=== PATIENT | female | born 1985 | race Caucasian/White ===

== ENCOUNTER 2017-01-13 22:31 | Emergency (ER) | payer OTHER ==
[~2017-01-13] VITALS: Ht 162.6 cm; Wt 100.0 kg
[~2017-01-13 22:31] MED LIST: GABA300C PO; Hydrocodone Bit/Acetaminophen PO; IBUP800T25 PO
[2017-01-13 23:15] VITALS: Ht 162.6 cm; Wt 100.0 kg
[2017-01-14] MEDS ORDERED: LIDOCAINE/MYLANTA 40 ML BTL PO ONE (01:30)
--- NOTE | 2017-01-14 02:21 | RADRPT ---
PROCEDURE: CHEST - 1 VIEW CLINICAL INDICATION: 32-year-old female with shortness of breath. TECHNIQUE: A single frontal PA view of the chest was performed. The images were reviewed on a PAC S workstation. COMPARISON: Chest x-ray May 24, 2015. FINDINGS: The cardiomediastinal silhouette has a normal appearance. There is no evidence for an infiltrate. There is no evidence for congestive heart failure. There is no evidence for pneumothorax. The osseou s structures are intact. IMPRESSION: No evidence for active cardiopulmonary disease. .Oscar Christianson MD, MD Date Time Electronically viewed and signed by .Oscar Christianson MD, on 01/14/2017 02:20 .M/
[2017-01-14 02:26] LABS: ADD SCAN DIFF NO
[2017-01-14 02:29] LABS: BASOPHIL # 0.1 10^3/ul (0.0-0.1); BASOPHILS % 0.5 % (0.0-2.0); EOSINOPHILS # 0.2 10^3/ul (0.0-0.5); EOSINOPHILS % 1.5 % (0.0-7.0); HEMATOCRIT 39.8 % (37.0-47.0); HEMOGLOBIN 13.5 g/dl (12.0-16.0); LYMPHOCYTES # 3.5 10^3/ul (0.8-2.9); LYMPHOCYTES % 25.5 % (15.0-51.0); MEAN CORPUSCULAR HEMOGLOBIN 30.8 pg (29.0-33.0); MEAN CORPUSCULAR HGB CONC 33.9 g/dl (32.0-37.0); MEAN CORPUSCULAR VOLUME 90.9 fl (82.0-101.0); MEAN PLATELET VOLUME 9.6 fl (7.4-10.4); MONOCYTE # 0.9 10^3/ul (0.3-0.9); MONOCYTES % 6.2 % (0.0-11.0); NEUTROPHILS % 65.6 % (39.0-77.0); PLATELET COUNT 422 10^3/UL (140-415); RED BLOOD COUNT 4.38 10^6/ul (4.20-5.40); RED CELL DISTRIBUTION WIDTH 12.3 % (11.5-14.5); WHITE BLOOD COUNT 13.8 10^3/ul (4.8-10.8)
[2017-01-14] MEDS ORDERED: traMADol 50 MG TAB PO ONE (02:30)
[2017-01-14 02:45] LABS: ALBUMIN 4.1 g/dl (3.3-4.9); CHLORIDE 104 mmol/L (97-110); POTASSIUM 3.8 mmol/L (3.5-5.1); SODIUM 144 mmol/L (135-144)
[2017-01-14 02:47] LABS: ANION GAP 20 (8-16); BILIRUBIN,INDIRECT 0.2 mg/dl (0-1.1); BILIRUBIN,TOTAL 0.2 mg/dl (0.2-1.3); CARBON DIOXIDE 24 mmol/L (21-31); CREATININE 0.65 mg/dl (0.44-1.00)
[2017-01-14 02:48] LABS: ALANINE AMINOTRANSFERASE 28 IU/L (13-69); ALBUMIN/GLOBULIN RATIO 1.07; ALKALINE PHOSPHATASE 85 IU/L (42-121); ASPARTATE AMINO TRANSFERASE 25 IU/L (15-46); BLOOD UREA NITROGEN 10 mg/dl (7-20); CALCIUM 9.4 mg/dl (8.4-10.2); GLUCOSE 128 mg/dl (70-220); TOTAL PROTEIN 7.9 g/dl (6.1-8.1)
[2017-01-14] MEDS ORDERED: ONDANSETRON (ODT) 4 MG TAB ODT STA (03:02)
[2017-01-14] MEDS ORDERED: KETOROLAC 30 MG INJ IM STA (03:02)
[2017-01-14 03:11] LABS: TROPONIN-I < 0.012 ng/ml (0.00-0.12)
[2017-01-14] MEDS ORDERED: FAMOTIDINE 20 MG TAB PO ONE (03:30)
[2017-01-14] MEDS ORDERED: GABA300C16 PO (03:49)
[2017-01-14] MEDS ORDERED: OMEP20CA16 PO (03:49)
[2017-01-14] MEDS ORDERED: IBUP-1542 PO (03:49)
[2017-01-14 04:18] VITALS: BP 126/70; PULSE 78; RESP 16
--- NOTE | 2017-01-14 04:53 | ERD ---
ER Documentation Chief Complaint Date/Time DATE: 01/14/17 TIME: 04:50 Chief Complaint SOB/CP X2 DAYS +LT SIDE FACIAL NUMBNESS HX MIGRAINE HPI Patient is a 32 year old female with a chief complaint of left facial pain and swelling, associated with nausea, dizziness, orthopnea and runny nose x4 days. Pt also ate some garlic today as a means to relieve the symptoms that led to epigastric pain. Pt was admitted at [facility] from May 23- with right facial pain and numbness - MRI brain and EEG were negative and pt exhibited medication-seeking behavior and anxiety with possible migraine headaches. Pt denies any facial numbness, weakness, drooling, facial droop, slurred speech, vision problems, chest pain or shortness of breath. Pt also denies any dysuria, urine or bowel incontinence. Pt also admitted of taking ibuprofen and her son's keflex medication as an attempt to relieve the pain. Pt has a medical history of asthma and hypercholesterolemia. ROS All systems reviewed and are negative except as per history of present illness. Medications Home Meds Active Scripts Omeprazole* (Omeprazole*) 20 Mg Capsule.dr, 20 MG PO DAILY, #30 CAP Prov:JOHN LONGO 01/14/17 Gabapentin* (Gabapentin*) 300 Mg Capsule, 300 MG PO BID, #60 CAP Prov:JOHN LONGO 01/14/17 Ibuprofen* (Motrin*) 600 Mg Tab, 600 MG PO Q6H Y for PAIN AND OR ELEVATED TEMP, #30 TAB Prov:JOHN LONGO 01/14/17 Gabapentin* (Neurontin*) 300 Mg Cap, 300 MG PO TID, #90 Prov:BRYN RG Y 05/30/15 [Hydrocodone Bit/Acetaminophen] 1 TAB TAB No Conflict Check, 1 TAB PO Q6H Y for pain, #30 TAB Prov:BRYN RG Y 05/30/15 Reported Medications Ibuprofen* (Ibuprofen*) 800 Mg Tablet, 800 MG PO Q6H Y for PAIN, TAB 05/24/15 Allergies Allergies: Coded Allergies: morphine (Unverified Allergy, Severe, itching, shortness of breath, ) PMhx/Soc History of Surgery: Yes (CHOLECYSTECTOMY, APPENDECTOMY, lumpectomy 2009) Anesthesia Reaction: No Hx Neurological Disorder: Yes (CVA) Hx Respiratory Disorders: Yes (ASTHMA) Hx Cardiac Disorders: Yes (HIGH CHOLESTEROL) Hx Psychiatric Problems: No Hx Miscellaneous Medical Probl: Yes (pancreatitis) Hx Alcohol Use: No Hx Substance Use: No Hx Tobacco Use: No Smoking Status: Never smoker Physical Exam Vitals Vital Signs Date Time Temp Pulse Resp B/P Pulse Ox O2 Delivery O2 Flow Rate FiO2 01/14/17 04:18 78 16 126/70 98 Room Air 01/13/17 23:15 99.1 112 20 158/101 99 Physical Exam Physical Exam CONST: Well-developed, well-nourished, in no acute distress. Nontoxic in appearance. HEENT: Tender left maxillary area upon palpation. No facial swelling. Normal conjunctiva. EOM intact. TM intact. External ear is normal. Clear oropharnyx without erythema. No Uvular deviation. Moist mucous membranes. Supple neck. No meningismus. No submandibular induration. RESP: Clear to auscultation bilaterally. No wheezing. CARDIO: Regular rate and rhythm, no murmurs. ABD: Soft, non tender, non distended. Normal bowel sounds. No McBurney's point tenderness. No guarding or rigidity. No peritoneal signs. SKIN: No petechiae or rashes. BACK: No midline or flank tenderness. EXT: No cyanosis or edema. Distal pulses equal and bilateral. Motor strength +5. NEURO: Awake and alert, appropriate for age. Result Diagram: 01/14/1721601/14/17216 Results 24 hrs Laboratory Tests Test 01/14/17 02:17 Alanine Aminotransferase (ALT/SGPT) 28IU/L Albumin 4.1g/dl Albumin/Globulin Ratio 1.07 Alkaline Phosphatase 85IU/L Anion Gap 20 Aspartate Amino Transf (AST/SGOT) 25IU/L Basophils # 0.110^3/ul Basophils % 0.5% Blood Urea Nitrogen 10mg/dl Calcium Level 9.4mg/dl Carbon Dioxide Level 24mmol/L Chloride Level 104mmol/L Creatinine 0.65mg/dl Direct Bilirubin 0.00mg/dl Eosinophils # 0.210^3/ul Eosinophils % 1.5% Globulin 3.80g/dl Glucose Level 128mg/dl Hematocrit 39.8% Hemoglobin 13.5g/dl Indirect Bilirubin 0.2mg/dl Lipase 67U/L Lymphocytes # 3.510^3/ul Lymphocytes % 25.5% Mean Corpuscular Hemoglobin 30.8pg Mean Corpuscular Hemoglobin Concent 33.9g/dl Mean Corpuscular Volume 90.9fl Mean Platelet Volume 9.6fl Monocytes # 0.910^3/ul Monocytes % 6.2% Neutrophils # 9.010^3/ul Neutrophils % 65.6% Nucleated Red Blood Cells # 0.010^3/ul Nucleated Red Blood Cells % 0.0/100WBC Platelet Count 37569^3/UL Potassium Level 3.8mmol/L Red Blood Count 4.3810^6/ul Red Cell Distribution Width 12.3% Sodium Level 144mmol/L Total Bilirubin 0.2mg/dl Total Protein 7.9g/dl Troponin I < 0.012ng/ml White Blood Count 13.810^3/ul Current Medications Medications (Trade) Dose Ordered Sig/Nya Route PRN Reason Start Time Stop Time Status Last Admin Dose Admin Miscellaneous Medication (Gi Cocktail (2)) 40 ml ONCE ONCE PO 01/14/17 01:30 01/14/17 01:33 DC 01/14/17 01:47 Tramadol HCl (Ultram) 50 mg ONCE ONCE PO 01/14/17 02:30 01/14/17 02:31 DC 01/14/17 02:15 Ketorolac Tromethamine (Toradol) 30 mg ONCE STAT IM 01/14/17 03:02 01/14/17 03:03 DC 01/14/17 03:11 Ondansetron HCl (Zofran Odt) 4 mg ONCE STAT ODT 01/14/17 03:02 01/14/17 03:03 DC 01/14/17 03:11 Famotidine (Pepcid) 20 mg ONCE ONCE PO 01/14/17 03:30 01/14/17 03:31 DC 01/14/17 03:21 PROCEDURE: CHEST - 1 VIEW CLINICAL INDICATION: 32-year-old female with shortness of breath. TECHNIQUE: A single frontal PA view of the chest was performed. The images were reviewed on a PACS workstation. COMPARISON: Chest x-ray May 24, 2015. FINDINGS: The cardiomediastinal silhouette has a normal appearance. There is no evidence for an infiltrate. There is no evidence for congestive heart failure. There is no evidence for pneumothorax. The osseous structures are intact. IMPRESSION: No evidence for active cardiopulmonary disease. .Oscar Christianson MD, Date Time Electronically viewed and signed by .Oscar Christianson MD, on 01/14/2017 02:20 Procedures/MDM EMERGENCY DEPARTMENT COURSE/MEDICAL DECISION MAKING This is a 32 year old female who comes to the emergency room secondary to complaints of left facial pain, orthopnea, nausea, dizziness, runny nose x4 days accompanied by epigastric pain today after eating garlic. The patient was given GI cocktail, pepcid, ultram and toradol in the department. On re-evaluation, the patient's symptoms improved. CXR was done and was interpreted by a radiologist. Result is unremarkable. EKG read by me: Rate/Rhythm: Regular rate and rhythm at a rate of 99 Intervals: Normal Impression: No evidence of ischemia or arrhythmia Pulmonary and cardiac exam are unremarkable. Pt denies numbness or weakness. Pt' s O2 sat is 99%. I believe the facial pain might be caused by sinusitis or trigeminal neuralgia. My primary diagnosis is facial pain. Secondary diagnosis is shortness of breath. Differential diagnoses considered, but not limited to sinusitis, trigeminal neuralgia, pneumonia, bronchitis, influenza, upper respiratory infection, asthma , pharyngitis, peritonsillar abscess, otitis media, otitis externa. . Pt is hemodynamically stable upon reassessment. The patient was discharged for outpatient management with a prescription for gabapentin, ibuprofen and prilosec. The patient was advised to followup with their PMD in 1-2 days and to return to the Emergency Department if there are any new or worsening symptoms. The patient understood and agreed with the diagnosis, treatment and plan. Patient is stable for discharge at this time. Departure Diagnosis: Primary Impression: Facial pain Additional Impression: Shortness of breath Condition: Stable Patient Instructions: Coping with Shortness of Breath: Controlling Stress, Trigeminal Neuralgia Ref[facility]: [facility] Usted se wood hecho un examen mdico de control que le indica que no est en mario condicin que requiera tratamiento urgente en el Departamento de Emergencia. Un estudio ms profundo y el tratamiento de munoz condicin pueden esperar sin ningn riesgo hasta que usted sea atendida/o en el consultorio de munoz mdico o mario cl javier. Es responsabilidad suya arreglar mario juana para el seguimiento del ron. MANEJO DE CONDICIONES NO URGENTES EN EL FUTURO 1) Si usted tiene un mdico de atencin primaria: Usted debera llamar a munoz mdico de atencin primaria antes de venir al departamento de emergencia. Despus de las horas de consultorio, munoz doctor o munoz asociado/a est disponible por telfono. El mdico o enfermero de danielle en el servicio telefnico puede asesorarle por gold medio para atender el problema, o ron contrario se puede programar mario juana. 2) Si usted no tiene un mdico de atencin primaria: Llame al mdico o clnica de referencia que aparece abajo kumar las horas de consultorio para hacer mario juana para que le vean. CLINICAS: [facility] [phone] [facility] [phone] [address] [facility]. [facility] [phone] [facility] [phone] [address] [facility] [place] [id number] [phone] [facility]. [phone] [address] [facility] () Usted se wood hecho un examen mdico de control que le indica que no est en mario condicin que requiera tratamiento urgente en el Departamento de Emergencia. Un estudio ms profundo y el tratamiento de munoz condicin pueden esperar sin ningn riesgo hasta que usted sea atendida/o en el consultorio de munoz mdico o mario cl javier. Es responsabilidad suya arreglar mario juana para el seguimiento del ron. MANEJO DE CONDICIONES NO URGENTES EN EL FUTURO 1) Si usted tiene un mdico de atencin primaria: Usted debera llamar a munoz mdico de atencin primaria antes de venir al departamento de emergencia. Despus de las horas de consultorio, munoz doctor o munoz asociado/a est disponible por telfono. El mdico o enfermero de danielle en el servicio telefnico puede asesorarle por gold medio para atender el problema, o ron contrario se puede programar mario juana. 2) Si usted no tiene un mdico de atencin primaria: Llame al mdico o condado institucions de referencia que aparece abajo kumar las horas de consultorio para hacer mario juana para que le vean. SI USTED NO PUEDE PAGAR PARA JUSTINA UN MEDICO puede ir a: [facility] [address] [place] [address] [facility] [address] [place] [address] [facility] [address] [place] [address] [facility] [facility] [address] [place], [place] [id number] Additional Instructions: Follow-up with your primary care physician in 1-2 days. Return to the emergency department immediately should you have any new or worsening symptoms, uncontrolled fevers, or other unexplained symptoms. Take all medications as directed. JOHN LONGO Jan 14, 2017 04:53
== END 2017-01-14 04:23 | disposition home or self-care (01) ==
LOC: FTE 22:31
DX: R51 Headache (principal); R06.02 Shortness of breath; R11.0 Nausea; J45.909 Unspecified asthma, uncomplicated
CPT/HCPCS: 36415; 71010; 80053; 83690; 84484; 85025; 93005; 96372; J1885; Z7502; Z7610